=== PATIENT | female | born 1965 | race Caucasian/White ===

== ENCOUNTER 2016-09-22 10:43 | Day surgery (SDC) | payer OTHER ==
[~2016-09-22 10:43] MED LIST: PROPOFOL INJ 200 MG/20 ML VIAL IV ONE
--- NOTE | 2016-09-22 12:30 | Operative Report ---
Operative Report DATE OF SURGERY: 09/22/16 Operative Report: The risks, benefits and alternatives of the procedure including risks of bleeding, perforation requiring surgery are explained to the patient detail and informed consent is obtained. Patient is taken back to the endoscopy suite and placed in a left, lateral decubital position. Timeout is called. Propofol medication is administered. Rectal examination was done which did not reveal any masses, tears or fissures. An Olympus videoscope was inserted into the patient's rectum. The scope was then gradually advanced all the way to the cecum. The cecum as identified by the usual anatomical landmarks including the ileocecal valve as well as the appendiceal office. Photodocumentation was obtained. Retroflexion maneuvers performed. The ascending colon, hepatic flexure, transverse colon, splenic flexure, descending colon and finally the rectosigmoid portions of the colon examined. PREOPERATIVE DIAGNOSIS: Colorectal cancer screening POSTOPERATIVE DIAGNOSIS: Normal screening colonoscopy OPERATION: Diagnostic colonoscopy SURGEON: IVANNA DUMONT ANESTHESIA: LMAC TISSUE REMOVED OR ALTERED: None. COMPLICATIONS: None. ESTIMATED BLOOD LOSS: none. INTRAOPERATIVE FINDINGS: Masses, AVMs, diverticulosis or polyps noted. PROCEDURE: Patient tolerated the procedure well. No immediate postprocedure complications are noted. Patient is discharged in good condition. Discharge date 09/22/2016. Discharge diet: Regular. Discharge activity: Regular. 10 year surveillance would be adequate Follow-up as needed
[2016-09-22 12:44] VITALS: BP 129/84
== END 2016-09-22 12:30 | disposition home or self-care (01) ==
LOC: END 10:43
PROVIDERS: ATTEND Internal Medicine Gastroenterology
PROC: 0DJD8ZZ Inspection of Lower Intestinal Tract, Via Natural or Artificial Opening Endoscopic (ICD-10-PCS; principal; 2016-09-22 14:00)
DX: Z12.11 Encounter for screening for malignant neoplasm of colon (principal)
CPT/HCPCS: 45378; J2704; 810

== ENCOUNTER → 2018-09-21 | Outpatient (CLI) | payer SELFPAY | LOC: LAB 17:23 | PROVIDERS: ATTEND Surgery | DX: C50.911 Malignant neoplasm of unspecified site of right female breast (principal) | CPT/HCPCS: 88305; 88342 ==